=== PATIENT | male | born 1995 | race Caucasian/White ===

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

== ENCOUNTER 2017-02-19 14:50 | Emergency (ER) | payer OTHER ==
[~2017-02-19] VITALS: Ht 175.3 cm; Wt 104.3 kg
--- NOTE | ~2017-02-19 | CT71 ---
[facility] A Service of [facility] RADIOLOGY TEXT RESULTS PATIENT: YEISON NYE LOCATION: [employer] : [birth year] UNIT #: [id number] AGE: [address]: Gerry Tong MD SEX: M ORDER DR: [id number] [facility] [address] [place], [place] [address] [id number] MR#: [id number] Acc #: [id number] NAME: YEISON NYE : 1995 SEX: M STUDY DATE/TIME: 02/19/2017 17:07 UNIT: [facility] [employer] [facility] ROOM: STUDY DESCRIPTION: CT Head Wo Contrast Attending Physician: Alejandro Tong M.D. Ordering Physician: Jordan Song M.D. Primary Care Physician: Trent Gonzalez M.D. MEDICAL IMAGING REPORT This report is preliminary unless electronic signature is present EXAM Head CT without HISTORY Seizure today and 6 years ago. Patient had been taking 9-plus Xanax a day and stopped taking them. COMMENT Routine noncontrast head CT is reviewed. There is no previous. This CT exam was performed with one or more of the following radiation dose reduction techniques: Automatic exposure control, adjustment of mA and/or kV according to patient size, and iterative reconstruction. There is a wet reading provided at 17:[address] Taylor prior to history. There is no displaced calvarial fracture. The visualized mastoid air cells are clear. There is mucosal disease and partial opacification of the ethmoid air cells, most prominent on the left side anteriorly, but there is no air-fluid level in the visualized paranasal sinuses. There is no evidence for acute intracranial hemorrhage or extraaxial fluid collection. The ventricles are normal in size and configuration and the fischer-white junction is well maintained. The basilar cisterns are patent. No acute cortical infarct is suspected. No intracranial mass effect. IMPRESSION Paranasal sinus disease without air-fluid level in the visualized paranasal sinuses, otherwise negative noncontrast head CT. Dictated by... Alexus Adam M.D. [facility] A Service of [facility] & [facility] RADIOLOGY TEXT RESULTS PATIENT: YEISON NYE LOCATION: [employer] : [birth year] UNIT #: [id number] AGE: [address]: Gerry Tong MD SEX: M ORDER DR: THIS IS AN ELECTRONICALLY VERIFIED REPORT Alexus Adam M.D. at 02/19/2017 11:04 PM SRAVANI/juan TD: 02/19/2017 22:58 JOB #: [id number] MEDICAL IMAGING REPORT Page 1 of 1 COPY
[2017-02-19 16:49] LABS: URINE SOURCE CLEAN CATCH
[2017-02-19 16:55] LABS: URINE APPEARANCE CLEAR; URINE BILIRUBIN NEG (NEG); URINE BLOOD NEG (NEG); URINE COLOR YELLOW; URINE GLUCOSE NEG (NEG); URINE KETONE 1+ (NEG); URINE LEUKOCYTE ESTERASE NEG (NEG); URINE NITRATE NEG (NEG); URINE PROTEIN 2+ (NEG); URINE SPECIFIC GRAVITY 1.025 (1.003-1.035)
[2017-02-19 16:57] LABS: URBCS1 AUWI 0-2 /[HPF] (0-2); URINE BACTERIA AUWI NEG (NEGATIVE); URINE SQUAMOUS EPITHELIAL CELL NONE SEEN /[HPF]; UWBCS1 AUWI 0-2 (0-5)
[2017-02-19 16:58] LABS: CULTURE INDICATED? NO
[2017-02-19 17:01] LABS: BASOPHIL% 0.2 % (0-2.5); EOSINOPHIL% 0.2 % (0.0-7.0); HEMATOCRIT 46.7 % (38.0-50.0); HEMOGLOBIN 15.5 gm/dL (13.0-16.0); LYMPHOCYTE% 5.7 % (17.0-45.0); MEAN CORPUSCULAR HEMOGLOBIN 27.8 PG (28-34); MEAN CORPUSCULAR HGB CONC 33.1 g/dL (30-36); MEAN PLATELET VOLUME 9.1 FL (6.5-11.5); MONOCYTE# 0.9 X10e3 (0-1.0); MONOCYTE% 5.5 % (3.0-12.0); NEUTROPHIL# 15.3 X10e3 (1.5-7.1); NEUTROPHIL% 88.4 % (40-75); PLATELET COUNT 266 X10e3 (140-420); RED BLOOD COUNT 5.56 X10e (3.90-5.60); RED CELL DISTRIBUTION WIDTH 13.8 % (11.0-15.5); WHITE BLOOD COUNT 17.2 X10e3 (4.0-10.5)
[2017-02-19 17:02] LABS: DIFF IND YES
[2017-02-19 17:07] LABS: AMPHETAMINE POS (NEG); BARBITURATES NEG (NEG); BENZODIAZEPINES POS (NEG); COCAINE NEG (NEG); MARIJUANA POS (NEG); OPIATES NEG (NEG); TRICYCLIC ANTIDEPRESSANTS NEG (NEG); U METHADONE NEG (NEG)
[2017-02-19 17:27] LABS: PLATELET ESTIMATE NORMAL (NORMAL)
[2017-02-19 17:31] LABS: ALBUMIN SERUM 5.2 g/dL (3.5-5.0); ALKALINE PHOSPHATASE 62 U/L (32-92); ALT (SGPT) 22 U/L (8-36); AST (SGOT) 23 U/L (13-38); BILIRUBIN, DIRECT 0.1 mg/dL (0.0-0.2); BILIRUBIN,TOTAL 1.1 mg/dL (0.2-2.0); BLOOD UREA NITROGEN 10 mg/dL (9-23); CALCIUM SERUM 10.1 mg/dL (8.4-10.2); CARBON DIOXIDE 29 mmol/L (22-31); CHLORIDE 103 mmol/L (100-111); GLOM FILT RATE Estimated 108.6 mL/min (>60); GLUCOSE FASTING 113 mg/dL (70-110); PROTEIN TOTAL SERUM 8.6 g/dL (6.0-8.3); SODIUM 141 mmol/L (135-145)
[2017-02-19 17:32] LABS: ALCOHOL BLOOD <5 mg/dL (0)
== END 2017-02-19 18:17 | disposition home or self-care (01) ==
LOC: CED 14:50
PROVIDERS: Emergency Medicine
DX: R56.9 Unspecified convulsions (principal); F13.239 Sedative, hypnotic or anxiolytic dependence with withdrawal, unspecified; K29.70 Gastritis, unspecified, without bleeding; F90.9 Attention-deficit hyperactivity disorder, unspecified type; F17.210 Nicotine dependence, cigarettes, uncomplicated
CPT/HCPCS: 36415; 70450; 80048; 80076; 80307; 81003; 82947; 85025; 96361; 96374; 99285; G0480; J2405